=== PATIENT | male | born 1955 | race Caucasian/White ===

== ENCOUNTER 2018-05-16 07:24 | Emergency (ER) | END 2018-05-16 08:56 | disposition home or self-care (01) ==

== ENCOUNTER 2018-06-08 05:38 | Emergency (ER) | END 2018-06-08 09:54 | disposition home or self-care (01) ==

== ENCOUNTER 2018-06-23 23:14 | Emergency (ER) | END 2018-06-24 02:34 | disposition home or self-care (01) ==

== ENCOUNTER 2018-06-24 10:30 | Emergency (ER) | END 2018-06-24 14:12 | disposition home or self-care (01) ==

== ENCOUNTER 2018-07-08 21:16 | Emergency (ER) | END 2018-07-09 02:00 | disposition home or self-care (01) ==

== ENCOUNTER 2018-08-03 00:04 | Emergency (ER) | END 2018-08-03 03:40 | disposition home or self-care (01) ==

== ENCOUNTER 2018-09-25 12:57 | Emergency (ER) | payer MEDICARE, OTHER ==
[~2018-09-25] VITALS: Ht 167.6 cm; Wt 73.7 kg
[~2018-09-25 12:57] MED LIST: CITA20TA11 PO; CLIN300C10 PO; FINA5TAB4 PO; PANT20TA2 PO; TAMS-14 PO
[2018-09-25 12:59] VITALS: BP 156/91; PULSE 86; RESP 20; Ht 167.6 cm; Wt 73.7 kg
--- NOTE | 2018-09-25 14:59 | ERD ---
ER Documentation Chief Complaint Chief Complaint Complains of urine problems x 2 days HPI 63-year-old male with history of indwelling Burnham catheter, presents to the emergency department, complaining of dysuria and foul urine smell for 2 days. The patient is requesting a change of the Burnham catheter. He denies fevers, no chills, no nausea or vomiting. ROS All systems reviewed and are negative except as per history of present illness. Medications Home Meds Active Scripts Clindamycin Hcl* (Clindamycin Hcl*) 300 Mg Capsule, 300 MG PO TID for 10 Days, CAP Prov:CORNELIA RAMOSPritesh 08/03/18 Reported Medications Finasteride* (Finasteride*) 5 Mg Tablet, 5 MG PO DAILY, TAB 06/24/18 Tamsulosin Hcl* (Flomax*) 0.4 Mg Cap.er.24h, 0.4 MG PO BID, CAP 06/08/18 Citalopram Hydrobromide* (Celexa*) 20 Mg Tablet, 20 MG PO DAILY, #30 TAB 06/08/18 Pantoprazole* (Protonix*) 20 Mg Tablet.dr, 20 MG PO AC BREAKFAST, TAB 06/08/18 Allergies Allergies: Coded Allergies: erythromycin base (Unverified Allergy, Unknown, 09/25/18) PMhx/Soc History of Surgery: Yes (LT WRIST ) Anesthesia Reaction: No Hx Neurological Disorder: No Hx Respiratory Disorders: No Hx Cardiac Disorders: No Hx Psychiatric Problems: Yes (DEPRESSION) Hx Miscellaneous Medical Probl: Yes (GERD , ENLARGED PROSTATE ) Hx Alcohol Use: Yes Hx Substance Use: Yes (WEED) Hx Tobacco Use: Yes (CIGARS OCCASIONAL) Smoking Status: Current every day smoker Physical Exam Vitals Vital Signs Date Temp Pulse Resp B/P (MAP) Pulse Ox O2 O2 Flow FiO2 Time Delivery Rate 09/25/18 97.9 86 20 156/91 97 12:59 (112) Physical Exam Const: No acute distress Head: Atraumatic Eyes: Normal Conjunctiva ENT: Normal External Ears, Nose and Mouth. Neck: Full range of motion. No meningismus. Resp: Clear to auscultation bilaterally Cardio: Regular rate and rhythm, no murmurs Abd: Soft, non tender, non distended. Normal bowel sounds Skin: No petechiae or rashes Back: No midline or flank tenderness Ext: No cyanosis, or edema Neur: Awake and alert Psych: Normal Mood and Affect Results 24 hrs Laboratory Tests Test 09/25/18 16:00 Urine Color RED Urine Clarity CLOUDY Urine pH 6.0 Urine Specific [place] 1.021 Urine Ketones 1+ mg/dL Urine Nitrite NEGATIVE mg/dL Urine Bilirubin NEGATIVE mg/dL Urine Urobilinogen NEGATIVE mg/dL Urine Leukocyte Esterase NEGATIVE Jeannette/ul Urine Microscopic RBC > 182 /HPF Urine Microscopic WBC 174 /HPF Urine Bacteria FEW /HPF Urine Mucus FEW /HPF Urine Hemoglobin 3+ mg/dL Urine Glucose NEGATIVE mg/dL Urine Total Protein 2+ mg/dl Current Medications Medications Dose Sig/Fatmata Start Time Status Last (Trade) Ordered Route PRN Stop Time Admin Dose Reason Admin Lidocaine 20 ml ONCE ONCE 09/25/18 DC 09/25/18 (Lidocaine MM 15:30 09/25/18 15:30 2% Urojet) 15:31 Procedures/MDM Vital signs stable. Differential diagnosis considered include acute urinary retention, side effects of medication, BPH, neurogenic bladder, UTI, kidney stone. During the ED course the patient remained stable, no new complaints. The patient received treatment with Burnham catheter placement presenting overall improvement of the symptoms. Results and clinical impression discussed with the patient who agrees with management. The patient is stable to be discharged home. some side effects of prescribed medications (headache, rash, nausea, vomiting, diarrhea, drowsiness, habituation, bleeding, hypertension, interactions with other medications) were reviewed. Follow up with the primary care provider in the next 48h has been recommended. If symptoms persist, worsen or new symptoms develop, then patient should return to the ED immediately. Instructions explained and given directly by me to the patient with acknowledgment and demonstrated understanding. Disclaimer: Inadvertent spelling and grammatical errors are likely due to EHR/dictation software use and do not reflect on the overall quality of patient care. Also, please note that the electronic time recorded on this note does not necessarily reflect the actual time of the patient encounter. Departure Diagnosis: Primary Impression: UTI (urinary tract infection) Additional Impression: Indwelling Burnham catheter present Condition: Stable Comments Thank you very much for allowing us to participate in your care. Your health and safety is our top priority at [facility]. Call your primary care doctor TOMORROW for an appointment during the next 2-4 days and bring all the information and medications prescribed. Have prescriptions filled and follow precisely the directions on the label. If the symptoms get worse and your provider is unavailable, return to the Emergency Department immediately. FRANCISCO BEAR MD Sep 25, 2018 14:59
[2018-09-25] MEDS ORDERED: LIDOCAINE 2% 20 ML UROJET SYRINGE MM ONE (15:30)
[2018-09-25] MEDS ORDERED: CEPH-443 PO (16:57)
== END 2018-09-25 17:44 | disposition home or self-care (01) ==
LOC: FTE 12:57
DX: N39.0 Urinary tract infection, site not specified (principal); F17.210 Nicotine dependence, cigarettes, uncomplicated; Z96.0 Presence of urogenital implants
CPT/HCPCS: 81001

== ENCOUNTER 2018-12-02 10:27 | Emergency (ER) | payer MEDICARE, OTHER ==
[~2018-12-02] VITALS: Wt 72.5 kg
[~2018-12-02 10:27] MED LIST changes: -CLIN300C10 PO; +LEVO500T48 PO
[2018-12-02] MEDS ORDERED: CIPR500T4 PO (12:10)
[2018-12-02] MEDS ORDERED: FLUCONAZOLE 150 MG TAB PO ONE (12:30)
--- NOTE | 2018-12-02 14:24 | ERD ---
ER Documentation Chief Complaint Chief Complaint OBSTRUCTION OF OMALLEY CATH, PAIN REPORTED HPI Patient is a 63-year-old male with a history of BPH with Omalley catheter placement, GERD, depression, who presents to the ER for concerns of Omalley catheter blockage. Patient states this morning he woke up with severe pain and noticed that there was no urine draining in his Omalley catheter bag. Patient states he had immediate relief after he passed 2 small blood clots while having his vitals assessed at triage. Patient states that the urine bag was filled with urine after. Since that time patient has no pain. Patient denies any fevers, chills, nausea, vomiting. Patient states he is scheduled to have procedure in December with his urologist at [facility]. Patient states that his Omalley catheter was changed 2 weeks ago at his urologist's office. Patient states since that time he has had intermittent leakage of the catheter and blockages. Patient is requesting calorie changes he feels that it was not put in correctly.. Patient denied homocidal ideations or suicidal ideations. ROS All systems reviewed and are negative except as per history of present illness. Medications Home Meds Active Scripts Ciprofloxacin Hcl* (Ciprofloxacin Hcl*) 500 Mg Tablet, 500 MG PO BID for 10 Days, TAB Prov:JAMES HAINES PA-C 12/02/18 Levofloxacin* (Levaquin*) 500 Mg Tablet, 500 MG PO DAILY for 7 Days, TAB Prov:LINDA MADSEN MD 10/07/18 Reported Medications Finasteride* (Finasteride*) 5 Mg Tablet, 5 MG PO DAILY, TAB 06/24/18 Tamsulosin Hcl* (Flomax*) 0.4 Mg Cap.er.24h, 0.4 MG PO BID, CAP 06/08/18 Citalopram Hydrobromide* (Celexa*) 20 Mg Tablet, 20 MG PO DAILY, #30 TAB 06/08/18 Pantoprazole* (Protonix*) 20 Mg Tablet.dr, 20 MG PO AC BREAKFAST, TAB 06/08/18 Allergies Allergies: Coded Allergies: erythromycin base (Unverified Allergy, Unknown, 10/07/18) PMhx/Soc History of Surgery: No Anesthesia Reaction: No Hx Neurological Disorder: No Hx Respiratory Disorders: No Hx Cardiac Disorders: No Hx Psychiatric Problems: No Hx Miscellaneous Medical Probl: No Hx Alcohol Use: No Hx Substance Use: No Hx Tobacco Use: No Smoking Status: Never smoker FmHx Family History: No diabetes Physical Exam Vitals Vital Signs Date Temp Pulse Resp B/P (MAP) Pulse Ox O2 O2 Flow FiO2 Time Delivery Rate 12/02/18 98.6 99 17 166/92 99 10:29 (116) Physical Exam GENERAL: Well-developed, well-nourished male. Appears in no acute distress. HEAD: Normocephalic, atraumatic. EYES: Pupils are equally reactive bilaterally. EOMs grossly intact. No conjunctival erythema. NECK: Supple. No meningismus. Normal range of motion of the neck. LUNG: Clear to auscultation bilaterally. No rhonchi, wheezing, rales or coarse breath sounds. HEART: Regular rate and rhythm. No murmurs, rubs or gallops. ABDOMEN: Soft, nontender, and nondistended. Positive bowel sounds in all four quadrants. No rebound tenderness, no guarding. (-) McBurney's point tenderness. No CVA tenderness. EXTREMITIES: Equal pulses bilaterally. No peripheral clubbing, cyanosis or edema. No unilateral leg swelling. NEUROLOGIC: Alert and oriented. Moving all four extremities without any difficulty. Normal speech. Steady gait. SKIN: Normal color. Warm and dry. No rashes or lesions. Results 24 hrs Laboratory Tests Test 12/02/18 11:50 Urine Color YELLOW Urine Clarity SLIGHTLY CLOUDY Urine pH 7.0 Urine Specific [place] 1.009 Urine Ketones NEGATIVE mg/dL Urine Nitrite NEGATIVE mg/dL Urine Bilirubin NEGATIVE mg/dL Urine Urobilinogen NEGATIVE mg/dL Urine Leukocyte Esterase 1+ Jeannette/ul Urine Microscopic RBC > 182 /HPF Urine Microscopic WBC 11 /HPF Urine Calcium Oxalate Crystals MANY /HPF Urine Bacteria FEW /HPF Urine Yeast (Budding) FEW /HPF Urine Hemoglobin 3+ mg/dL Urine Glucose NEGATIVE mg/dL Urine Total Protein NEGATIVE mg/dl Current Medications Medications Dose Sig/Fatmata Start Time Status Last (Trade) Ordered Route PRN Stop Time Admin Dose Reason Admin Fluconazole 150 mg ONCE ONCE 12/02/18 DC 12/02/18 (Diflucan) PO 12:30 12:22 12/02/18 12:30 Procedures/MDM MEDICAL DECISION MAKING: This is a this is a 63-year-old male with a history of BPH with Omalley catheter placement, GERD, depression who presents the ER for concerns of Omalley catheter problems. Patient states prior to arrival his catheter was blocked however in triage she passed some blood clots and catheter is now passing urine. Patient denies any pain at this time. Vital signs were reviewed. Patient was afebrile. Omalley catheter will be changed as patient states he is been having problems with his current catheter. clinical staff anesthesiologist assisted. Urine was sent to the lab and was noted to have 1+ leukocyte esterase as well as yeast. Urine was sent for culture. Findings were discussed with supervising physician Dr. Garcia, who agreed it was appropriate to treat the patient at this time with Diflucan and ciprofloxacin at this time. Patient was given dose of Diflucan here. Patient advised to follow-up with urologist as scheduled. At this time, the patient's presentation is most consistent with Omalley catheter change as well as UTI. Low suspicion for urosepsis, pyelonephritis, nephrolithiasis, appendicitis, diverticulitis, constipation, urethritis, prostatitis, epididymitis, testicular torsion. Patient was nontoxic, [id number] prior to discharge. PRESCRIPTIONS: Ciprofloxacin DISCHARGE: At this time, patient is stable for discharge and outpatient management. I have instructed the patient to follow-up with his/her primary care physician in 1-2 days. Patient should repeat UA in 2 weeks to check for resolution of urinary tract infection. If symptoms persist, patient may need to see a specialist for further examinations and testing. I have instructed the patient to promptly return to the ER at any time for any new or worsening symptoms including increased pain, fever, nausea, vomiting, urinary changes or weakness. The patient and/or family expressed understanding of and agreement with this plan. All questions were answered. Home care instructions were provided. Disclaimer: Inadvertent spelling and grammatical errors are likely due to EHR/dictation software use and do not reflect on the overall quality of patient care. Also, please note that the electronic time recorded on this note does not necessarily reflect the actual time of the patient encounter. Departure Diagnosis: Primary Impression: Catheter (urine) change required Additional Impression: UTI (urinary tract infection) Urinary tract infection type: site unspecified Hematuria presence: with hematuria Qualified Codes: N39.0 - Urinary tract infection, site not specified; R31.9 - Hematuria, unspecified Condition: Fair Patient Instructions: Understanding Urinary Tract Infections (UTIs), Omalley Catheter, Care Referrals: [facility] (PCP) Additional Instructions: Follow up with your urologist as scheduled. Call your primary care doctor TOMORROW for an appointment during the next 1-2 days.See the doctor sooner or return here if your condition worsens before your appointment time. JAMES HAINES PA-C Dec 02, 2018 14:24
== END 2018-12-02 12:25 | disposition home or self-care (01) ==
LOC: FTE 10:27
DX: N39.0 Urinary tract infection, site not specified (principal); Z46.6 Encounter for fitting and adjustment of urinary device
CPT/HCPCS: 81001; 87086

== ENCOUNTER 2018-12-24 03:50 | Emergency (ER) | payer MEDICARE, OTHER ==
[~2018-12-24] VITALS: Ht 167.6 cm; Wt 75.0 kg
[~2018-12-24 03:50] MED LIST changes: +CIPR500T4 PO
--- NOTE | 2018-12-24 03:54 | ERD ---
ER Documentation Chief Complaint Chief Complaint clotted Burnham HPI The patient is a 63-year-old male, presenting to the ER because of clotted Burnham catheter that was replaced a few weeks ago. He is awaiting for prostate surgery at [facility]. He denies fever, chills, neck pain, chest pain, abdominal pain, vomiting. Past medical history: BPH, GERD, depression ROS All systems reviewed and are negative except as per history of present illness. Medications Home Meds Active Scripts Ciprofloxacin Hcl* (Ciprofloxacin Hcl*) 500 Mg Tablet, 500 MG PO BID for 10 Days, TAB Prov:JAMES HAINES PA-C 12/02/18 Levofloxacin* (Levaquin*) 500 Mg Tablet, 500 MG PO DAILY for 7 Days, TAB Prov:LINDA MADSEN MD 10/07/18 Reported Medications Finasteride* (Finasteride*) 5 Mg Tablet, 5 MG PO DAILY, TAB 06/24/18 Tamsulosin Hcl* (Flomax*) 0.4 Mg Cap.er.24h, 0.4 MG PO BID, CAP 06/08/18 Citalopram Hydrobromide* (Celexa*) 20 Mg Tablet, 20 MG PO DAILY, #30 TAB 06/08/18 Pantoprazole* (Protonix*) 20 Mg Tablet.dr, 20 MG PO AC BREAKFAST, TAB 06/08/18 Allergies Allergies: Coded Allergies: erythromycin base (Unverified Allergy, Unknown, 10/07/18) PMhx/Soc History of Surgery: No Anesthesia Reaction: No Hx Neurological Disorder: No Hx Respiratory Disorders: No Hx Cardiac Disorders: No Hx Psychiatric Problems: No Hx Miscellaneous Medical Probl: No Hx Alcohol Use: No Hx Substance Use: No Hx Tobacco Use: No Physical Exam Vitals Vital Signs Date Temp Pulse Resp B/P (MAP) Pulse Ox O2 O2 Flow FiO2 Time Delivery Rate 12/24/18 73 20 147/89 100 Room Air 05:41 (108) 12/24/18 70 20 158/96 100 Nasal 2.0 04:23 (116) Cannula 12/24/18 95 24 195/104 100 04:11 (134) Physical Exam Const: No acute distress. Head: Atraumatic. Eyes: Normal Conjunctiva. ENT: Normal External Ears, Nose and Mouth. Neck: Full range of motion. No meningismus. Resp: Clear to auscultation bilaterally. Cardio: Regular rate and rhythm. Abd: Soft, distended urinary bladder, normal bowel sounds Skin: No petechiae or rashes. Back: No midline or flank tenderness. Ext: No cyanosis, or edema. Neur: Awake and alert. No focal deficit Psych: Normal Mood and Affect. Results 24 hrs Laboratory Tests Test 12/24/18 04:25 Bedside Urine pH (LAB) 6.0 Bedside Urine Protein (LAB) 2+ Bedside Urine Glucose (UA) Negative Bedside Urine Ketones (LAB) Trace Bedside Urine Blood 3+ Bedside Urine Nitrite (LAB) Negative Bedside Urine Leukocyte Esterase (L Trace Current Medications Medications Dose Sig/Fatmata Start Time Status Last (Trade) Ordered Route PRN Stop Time Admin Dose Reason Admin Lidocaine 20 ml ONCE ONCE 12/24/18 DC 12/24/18 (Lidocaine MM 04:00 12/24/18 04:03 2% Urojet) 04:01 Procedures/MDM MEDICAL MAKING DECISION: The patient is a 63-year-old male, presenting with clotted Burnham catheter, it was replaced.drain about 1 L of urine with spontaneous relief The differential diagnoses considered include but are not limited to BPH, urethral stricture, cystitis Departure Diagnosis: Primary Impression: Obstructed Burnham catheter Condition: Good Comments I discussed the findings with the patient. I advised the patient to follow-up with his urologist in about 2-3 days, sooner if needed and return if any concern. Disclaimer: Inadvertent spelling and grammatical errors are likely due to EHR/dictation software use and do not reflect on the overall quality of patient care. Also, please note that the electronic time recorded on this note does not necessarily reflect the actual time of the patient encounter. YOLANDA PRIEST MD Dec 24, 2018 03:54
[2018-12-24] MEDS ORDERED: LIDOCAINE 2% 20 ML UROJET SYRINGE MM ONE (04:00)
[2018-12-24 04:11] VITALS: Ht 167.6 cm; Wt 75.0 kg
[2018-12-24 05:41] VITALS: BP 147/89; PULSE 73; RESP 20
== END 2018-12-24 05:51 | disposition home or self-care (01) ==
LOC: E/R 03:50
DX: T83.098A Other mechanical complication of other urinary catheter, initial encounter (principal); R33.9 Retention of urine, unspecified; Y73.3 Surgical instruments, materials and gastroenterology and urology devices (including sutures) associated with adverse incidents
CPT/HCPCS: 81003; 87086

== ENCOUNTER 2018-12-30 22:17 | Emergency (ER) | payer MEDICARE, OTHER ==
[~2018-12-30] VITALS: Ht 175.3 cm; Wt 73.8 kg
[2018-12-30 22:36] VITALS: Ht 175.3 cm; Wt 73.8 kg
[2018-12-31] MEDS ORDERED: NITR-58 PO (04:42)
[2018-12-31] MEDS ORDERED: LIDOCAINE 2% JEL.PF.APP 5 ML UROJET SYRINGE MM ONE (05:30)
[2018-12-31 06:06] VITALS: BP 128/78; PULSE 78; RESP 16
--- NOTE | 2018-12-31 21:46 | ERD ---
ER Documentation Chief Complaint Chief Complaint STATES CLOGGED URINE CATH X2 HRS, STATES BLOOD IN URINE HPI History of Present Illness: 63-year-old male with history of BPH coming in today with complaint of clogged urine catheter for the past 2 hours. Patient reports having a Burnham catheter since June of last year due to his BPH. Associated symptoms includes mild abdominal pain and pink tinged urine. Patient denies any other associated symptoms. Patient denies flank pain or abdominal pain. At home pharmacological/nonpharmacological treatment for symptoms: DENIES Denies social concerns; Denies recent foreign travel ROS All systems reviewed and are negative except as per history of present illness. Medications Home Meds Active Scripts Nitrofurantoin Monohyd Macrocr* (Macrobid*) 100 Mg Capsr, 100 MG PO BID for bacteria in urine for 5 Days, CAP Prov:JENNIFER SOLORIO NP 12/31/18 Ciprofloxacin Hcl* (Ciprofloxacin Hcl*) 500 Mg Tablet, 500 MG PO BID for 10 Days, TAB Prov:JAMES HAINES PA-C 12/02/18 Levofloxacin* (Levaquin*) 500 Mg Tablet, 500 MG PO DAILY for 7 Days, TAB Prov:LINDA MADSEN MD 10/07/18 Reported Medications Finasteride* (Finasteride*) 5 Mg Tablet, 5 MG PO DAILY, TAB 06/24/18 Tamsulosin Hcl* (Flomax*) 0.4 Mg Cap.er.24h, 0.4 MG PO BID, CAP 06/08/18 Citalopram Hydrobromide* (Celexa*) 20 Mg Tablet, 20 MG PO DAILY, #30 TAB 06/08/18 Pantoprazole* (Protonix*) 20 Mg Tablet.dr, 20 MG PO AC BREAKFAST, TAB 06/08/18 Allergies Allergies: Coded Allergies: erythromycin base (Unverified Allergy, Unknown, 10/07/18) PMhx/Soc History of Surgery: No Anesthesia Reaction: No Hx Neurological Disorder: No Hx Respiratory Disorders: No Hx Cardiac Disorders: No Hx Psychiatric Problems: No Hx Alcohol Use: No Hx Substance Use: No Hx Tobacco Use: No Smoking Status: Never smoker FmHx Family History: No diabetes Physical Exam Vitals Vital Signs Date Temp Pulse Resp B/P (MAP) Pulse Ox O2 O2 Flow FiO2 Time Delivery Rate 12/31/18 98.6 78 16 128/78 100 Room Air 06:06 (95) 12/30/18 98.0 70 18 144/89 100 22:36 (107) Physical Exam Const: No acute distress Head: Atraumatic Eyes: Normal Conjunctiva ENT: Normal External Ears, Nose and Mouth. Neck: Full range of motion. No meningismus. Resp: Clear to auscultation bilaterally Cardio: Regular rate and rhythm, no murmurs Abd: Soft, positive tenderness to suprapubic, non distended. Normal bowel sounds. Skin: No petechiae or rashes Back: No midline or flank tenderness Ext: No cyanosis, or edema Neur: Awake and alert Psych: Normal Mood and Affect : Burnham catheter in place to penis. Results 24 hrs Laboratory Tests Test 12/31/18 02:58 Urine Color YELLOW Urine Clarity SLIGHTLY CLOUDY Urine pH 6.0 Urine Specific [place] 1.006 Urine Ketones NEGATIVE mg/dL Urine Nitrite NEGATIVE mg/dL Urine Bilirubin NEGATIVE mg/dL Urine Urobilinogen NEGATIVE mg/dL Urine Leukocyte Esterase NEGATIVE Jeannette/ul Urine Microscopic RBC 26 /HPF Urine Microscopic WBC 2 /HPF Urine Bacteria FEW /HPF Urine Hemoglobin 3+ mg/dL Urine Glucose NEGATIVE mg/dL Urine Total Protein NEGATIVE mg/dl Current Medications Medications Dose Sig/Fatmata Start Time Status Last (Trade) Ordered Route PRN Stop Time Admin Dose Reason Admin Lidocaine 5 ml ONCE ONCE 12/31/18 DC HCl MM 05:30 (Lidocaine 12/31/18 05:31 Urojet) Procedures/MDM ED course includes a thorough examination and history. Medications: --- Imaging: Bladder scan/ultrasound Labs: Urinalysis ED course includes removal of old Burnham catheter insertion of a new Burnham catheter; bladder irrigation with normal saline; bladder scan to measure amount of urine in bladder. Low suspicion for life-threatening medical emergency. Low suspicion for acute abdominal gastrointestinal or genitourinary emergency that requires hospitalization or immediate surgical intervention. patient presenting with constellation of symptoms likely representing combination of catheter/bacteria in urine as characterized by history, physical exam findings, lab findings. Urinalysis showing few bacteria, RBCs, hemoglobin. Patient reassessment: Nurse's irrigated Burnham and patient is producing urine during ER visit. After removal of Burnham catheter, the nurse noted that a blood clot was noted to the tip of catheter in was likely the source of the Burnham catheter not draining properly. Reinsertion of a larger Burnham. Burnham appears t o be draining properly at time of discharge. No gross hematuria noted. No respiratory distress, otherwise relatively well appearing and nontoxic. Patient educated on diagnoses, prescriptions, follow-up care, return precautions. Strict return precautions given for worsening condition; questions answered discharge. Disposition for discharge with followup in 2 days with PCP/clinic. Departure Diagnosis: Primary Impression: Hematuria Hematuria type: unspecified type Qualified Codes: R31.9 - Hematuria, unspecified Additional Impressions: Complication of catheter Encounter type: initial encounter Qualified Codes: T85.9XXA - Unspecified complication of internal prosthetic device, implant and graft, initial encounter Bacteria in urine Condition: Stable Patient Instructions: Catheter-Associated Urinary Tract Infections, Emptying and Cleaning Your Urinary Catheter Bag Referrals: [facility] YOU HAVE RECEIVED A MEDICAL SCREENING EXAM AND THE RESULTS INDICATE THAT YOU DO NOT HAVE A CONDITION THAT REQUIRES URGENT TREATMENT IN THE EMERGENCY DEPARTMENT. FURTHER EVALUATION AND TREATMENT OF YOUR CONDITION CAN WAIT UNTIL YOU ARE SEEN IN YOUR DOCTORS OFFICE WITHIN THE NEXT 1-2 DAYS. IT IS YOUR RESPONSIBILITY TO MAKE AN APPOINTMENT FOR FOLOW-UP CARE. IF YOU HAVE A PRIMARY DOCTOR --you should call your primary doctor and schedule an appointment IF YOU DO NOT HAVE A PRIMARY DOCTOR YOU CAN CALL OUR PHYSICIAN REFERRAL HOTLINE AT IF YOU CAN NOT AFFORD TO SEE A PHYSICIAN YOU CAN CHOSE FROM THE FOLLOWING [facility] [address] [facility]. [facility] [address] [facility]. [facility] [address] [facility] [facility] [address] [facility] [facility]. [facility] [address] [facility]. [facility]. [address] [facility]. [facility] YOU HAVE RECEIVED A MEDICAL SCREENING EXAM AND THE RESULTS INDICATE THAT YOU DO NOT HAVE A CONDITION THAT REQUIRES URGENT TREATMENT IN THE EMERGENCY DEPARTMENT. FURTHER EVALUATION AND TREATMENT OF YOUR CONDITION CAN WAIT UNTIL YOU ARE SEEN IN YOUR DOCTORS OFFICE WITHIN THE NEXT 1-2 DAYS. IT IS YOUR RESPONSIBILITY TO MAKE AN APPOINTMENT FOR FOLOW-UP CARE. IF YOU HAVE A PRIMARY DOCTOR --you should call your primary doctor and schedule and appointment IF YOU DO NOT HAVE A PRIMARY DOCTOR YOU CAN CALL OUR PHYSICIAN REFERRAL HOTLINE AT . IF YOU CAN NOT AFFORD TO SEE A PHYSICIAN YOU CAN CHOSE FROM THE FOLLOWING [facility] INSTITUTIONS: [facility] [address] [place] [address] [facility] [address] [place] [address] [facility] [address] [place] [address] Additional Instructions: Thank you very much for allowing us to participate in your care. Your health and safety is our top priority at [facility]. It is important to read all discharge instructions and education provided in your discharge packet. Call your primary care doctor TOMORROW for an appointment during the next 2-4 days and bring all the information and medications prescribed. It is very important to follow-up with your primary care doctor and/or urologist for reevaluation of catheter. Have prescriptions filled and follow precisely the directions on the label. -Macrobid as an antibiotic for the bacteria in your urine. Take this medication twice a day for the next 5 days. If the symptoms get worse and your provider is unavailable, return to the [facility] immediately. JENNIFER SOLORIO NP Dec 31, 2018 21:46
== END 2018-12-31 06:07 | disposition home or self-care (01) ==
LOC: FTE 22:17
DX: T85.9XXA Unspecified complication of internal prosthetic device, implant and graft, initial encounter (principal); N39.0 Urinary tract infection, site not specified; Y73.2 Prosthetic and other implants, materials and accessory gastroenterology and urology devices associated with adverse incidents
CPT/HCPCS: 76856; 81001

== ENCOUNTER 2019-01-21 15:20 | Emergency (ER) | payer MEDICARE, OTHER ==
[~2019-01-21] VITALS: Ht 175.3 cm; Wt 70.6 kg
[~2019-01-21 15:20] MED LIST changes: +NITR-58 PO
[2019-01-21 15:24] VITALS: Ht 175.3 cm; Wt 70.6 kg
[2019-01-21] MEDS ORDERED: CIPR500T4 PO (16:51)
--- NOTE | 2019-01-21 18:37 | ERD ---
ER Documentation Chief Complaint Chief Complaint needs willard cath to be changed, pain at insertion site, discharge from cath HPI Patient is a 63-year-old male with prostate issues and a chronic Willard catheter who presents saying that his catheter is "infected". He said that it started 2 days ago. He said there is white discharge from around the catheter and that it hall and itches. He has no fevers. He does not currently have a primary doctor or a urologist. Upon review of old medical records the patient has multiple visits to the ER for various complaints. ROS All systems reviewed and are negative except as per history of present illness. Medications Home Meds Active Scripts Ciprofloxacin Hcl* (Ciprofloxacin Hcl*) 500 Mg Tablet, 500 MG PO BID for 7 Days, TAB Prov:CARLOS CRUZ MD 01/21/19 Nitrofurantoin Monohyd Macrocr* (Macrobid*) 100 Mg Capsr, 100 MG PO BID for bacteria in urine for 5 Days, CAP Prov:JENNIFER SOLORIO NP 12/31/18 Ciprofloxacin Hcl* (Ciprofloxacin Hcl*) 500 Mg Tablet, 500 MG PO BID for 10 Days, TAB Prov:JAMES HAINES PA-C 12/02/18 Levofloxacin* (Levaquin*) 500 Mg Tablet, 500 MG PO DAILY for 7 Days, TAB Prov:LINDA MADSEN MD 10/07/18 Reported Medications Finasteride* (Finasteride*) 5 Mg Tablet, 5 MG PO DAILY, TAB 06/24/18 Tamsulosin Hcl* (Flomax*) 0.4 Mg Cap.er.24h, 0.4 MG PO BID, CAP 06/08/18 Citalopram Hydrobromide* (Celexa*) 20 Mg Tablet, 20 MG PO DAILY, #30 TAB 06/08/18 Pantoprazole* (Protonix*) 20 Mg Tablet.dr, 20 MG PO AC BREAKFAST, TAB 06/08/18 Allergies Allergies: Coded Allergies: erythromycin base (Unverified Allergy, Unknown, 10/07/18) PMhx/Soc Prostate issues with chronic indwelling Willard History of Surgery: No Anesthesia Reaction: No Hx Neurological Disorder: No Hx Respiratory Disorders: No Hx Cardiac Disorders: No Hx Psychiatric Problems: No Hx Alcohol Use: No Hx Substance Use: No Hx Tobacco Use: No FmHx Family History: diabetes Physical Exam Vitals Vital Signs Date Temp Pulse Resp B/P (MAP) Pulse Ox O2 O2 Flow FiO2 Time Delivery Rate 01/21/19 97.9 72 18 172/98 98 15:24 (122) Physical Exam Const: No acute distress Head: Atraumatic Eyes: Normal Conjunctiva ENT: Normal External Ears, Nose and Mouth. Neck: Full range of motion. No meningismus. Resp: Clear to auscultation bilaterally Cardio: Regular rate and rhythm, no murmurs Abd: Soft, non tender, non distended. Normal bowel sounds Skin: No petechiae or rashes Back: No midline or flank tenderness Ext: No cyanosis, or edema Neur: Awake and alert : Indwelling Willard catheter with white discharge from around the Willard catheter Results 24 hrs Laboratory Tests Test 01/21/19 17:00 Bedside Urine pH (LAB) 6.0 Bedside Urine Protein (LAB) 2+ Bedside Urine Glucose (UA) Negative Bedside Urine Ketones (LAB) Negative Bedside Urine Blood 3+ Bedside Urine Nitrite (LAB) Positive Bedside Urine Leukocyte Esterase (L 1+ Procedures/MDM Urine dip is positive for infection. Patient is a 63-year-old male presents with acute cystitis with Willard catheter. The Willard catheter was removed and replaced with a new one. The patient will be given Cipro for 1 week. I doubt sepsis or other serious bacterial infection. The patient will be given information for Dr. Grove from urology as he should have a urologist that he can follow-up with. He can return for any worsening symptoms Departure Diagnosis: Primary Impression: UTI (urinary tract infection) Urinary tract infection type: acute cystitis Hematuria presence: without hematuria Qualified Codes: N30.00 - Acute cystitis without hematuria Additional Impression: Complication of catheter Encounter type: initial encounter Qualified Codes: T85.9XXA - Unspecified complication of internal prosthetic device, implant and graft, initial encounter Condition: Fair Patient Instructions: Catheter-Associated Urinary Tract Infections Referrals: [facility] (PCP) MCKENNA GROVE MD Additional Instructions: SPECIALIST: YOU HAVE A MEDICAL CONDITION WHICH REQUIRES YOU TO SEE A SPECIALIST WITHIN THE NEXT 1-2 DAYS. PLEASE FOLLOW UP WITH YOUR PRIMARY PHYSICIAN FOR REFFERAL.IF YOU DO NOT HAVE A PRIMARY CARE PHYSICIAN AND/OR YOU CAN NOT AFFORD TO SEE A PHYSICIAN THE FOLLOWING RESOURCES HAVE BEEN SUPPLIED TO YOU. IT IS YOUR RESPONSIBILITY TO BE SEEN BY THE SPECIALIST CARLOS CRUZ MD January 21, 2019 18:37
== END 2019-01-21 17:23 | disposition home or self-care (01) ==
LOC: FTE 15:20
DX: N30.00 Acute cystitis without hematuria (principal); Y73.2 Prosthetic and other implants, materials and accessory gastroenterology and urology devices associated with adverse incidents
CPT/HCPCS: 81003

== ENCOUNTER 2019-03-28 13:31 | Emergency (ER) | payer MEDICARE, OTHER ==
[~2019-03-28] VITALS: Ht 157.5 cm; Wt 78.0 kg
[2019-03-28 13:33] VITALS: Ht 157.5 cm; Wt 78.0 kg
[2019-03-28] MEDS ORDERED: LIDOCAINE 2% 20 ML UROJET SYRINGE MM ONE ×2 (14:30)
[2019-03-28] MEDS ORDERED: TAMS-14 PO (14:42)
[2019-03-28] MEDS ORDERED: CEPH-443 PO (14:42)
--- NOTE | 2019-03-28 14:50 | ERD ---
ER Documentation Chief Complaint Chief Complaint HAS F/C IN X 2 WEEKS , APPEARS BEEN CLOGGED HAS PAIN HPI 63-year-old male presenting with pain around his catheter and clogging. Patient has an appointment in 2 days with his urologist and is waiting for a TURP procedure. Patient denies any fevers. Denies hematuria. Denies back pain. Denies abdominal pain. Patient has distention because of clogged catheter. Last catheter was placed 4 weeks ago. Medical history is hypertension and enlarged prostate. Social history denies ROS All systems reviewed and are negative except as per history of present illness. Medications Home Meds Active Scripts Tamsulosin Hcl* (Flomax*) 0.4 Mg Cap.er.24h, 0.4 MG PO BID, #30 CAP Prov:BRAD JUDGE PA-C 03/28/19 Cephalexin* (Keflex*) 500 Mg Capsule, 500 MG PO QID for 7 Days, CAP Prov:BRAD JUDGE PA-C 03/28/19 Ciprofloxacin Hcl* (Ciprofloxacin Hcl*) 500 Mg Tablet, 500 MG PO BID for 7 Days, TAB Prov:CARLOS CRUZ MD 01/21/19 Nitrofurantoin Monohyd Macrocr* (Macrobid*) 100 Mg Capsr, 100 MG PO BID for bacteria in urine for 5 Days, CAP Prov:JENNIFER SOLORIO NP 12/31/18 Ciprofloxacin Hcl* (Ciprofloxacin Hcl*) 500 Mg Tablet, 500 MG PO BID for 10 Days, TAB Prov:JAMES HAINES PA-C 12/02/18 Levofloxacin* (Levaquin*) 500 Mg Tablet, 500 MG PO DAILY for 7 Days, TAB Prov:LINDA MADSEN MD 10/07/18 Reported Medications Finasteride* (Finasteride*) 5 Mg Tablet, 5 MG PO DAILY, TAB 06/24/18 Tamsulosin Hcl* (Flomax*) 0.4 Mg Cap.er.24h, 0.4 MG PO BID, CAP 06/08/18 Citalopram Hydrobromide* (Celexa*) 20 Mg Tablet, 20 MG PO DAILY, #30 TAB 06/08/18 Pantoprazole* (Protonix*) 20 Mg Tablet.dr, 20 MG PO AC BREAKFAST, TAB 06/08/18 Allergies Allergies: Coded Allergies: erythromycin base (Unverified Allergy, Unknown, 10/07/18) PMhx/Soc History of Surgery: No Anesthesia Reaction: No Hx Neurological Disorder: No Hx Respiratory Disorders: No Hx Cardiac Disorders: No Hx Psychiatric Problems: No Hx Alcohol Use: No Hx Substance Use: No Hx Tobacco Use: No Smoking Status: Never smoker FmHx Family History: No diabetes, No coronary disease, No other Physical Exam Vitals Vital Signs Date Temp Pulse Resp B/P (MAP) Pulse Ox O2 O2 Flow FiO2 Time Delivery Rate 03/28/19 97.6 71 18 134/91 99 Room Air 15:17 (105) 03/28/19 98.1 78 18 140/78 99 13:33 (98) Physical Exam GENERAL: The patient is well-appearing, well-nourished, in no acute distress CHEST: Clear to auscultation bilaterally. There are no rales, wheezes or rhonchi. HEART: Regular rate and rhythm. No murmurs, clicks, rubs or gallops. No S3 or S4. ABDOMEN:Soft, nontender and nondistended. Good bowel sounds. No rebound or guarding. No gross peritonitis. No gross organomegaly or masses. : Mild irritation noted around the penis. BACK: No CVAT Results 24 hrs Laboratory Tests Test 03/28/19 14:38 Bedside Urine pH (LAB) 7.0 Bedside Urine Protein (LAB) 3+ Bedside Urine Glucose (UA) Negative Bedside Urine Ketones (LAB) Trace Bedside Urine Blood 3+ Bedside Urine Nitrite (LAB) Negative Bedside Urine Leukocyte Esterase (L 1+ Current Medications Medications Dose Sig/Fatmata Start Time Status Last (Trade) Ordered Route PRN Stop Time Admin Dose Reason Admin Lidocaine 20 ml ONCE ONCE 03/28/19 DC 03/28/19 (Lidocaine MM 14:30 03/28/19 14:34 2% Urojet) 14:31 Lidocaine 20 ml ONCE ONCE 03/28/19 DC (Lidocaine MM 14:30 03/28/19 2% Urojet) 14:46 Ceftriaxone 1 gm ONCE ONCE 03/28/19 DC 03/28/19 Sodium IM 15:00 03/28/19 14:52 (Rocephin) 15:01 Lidocaine 5 ml ONCE ONCE 03/28/19 DC 03/28/19 (Xylocaine INJ 15:00 03/28/19 14:52 1% (Mpf)) 15:01 Procedures/MDM ER course: Urine culture sent. Urinalysis positive for infection. Rocephin given in ED. MDM: 63-year-old male presenting with irritation to his catheter. Patient had catheter replaced in the ER. He will be placed on antibiotics and urine culture sent. I have low suspicion for pyelonephritis. Patient is discharged with strict ER precautions and told to follow-up with primary care within 1 to 2 days for close evaluation. Patient is told if symptoms change or worsen to return immediately to the ER. All questions answered at discharge Departure Diagnosis: Primary Impression: UTI (urinary tract infection) Additional Impression: Obstructed Burnham catheter Condition: Stable Patient Instructions: Understanding Urinary Tract Infections (UTIs) Referrals: [facility] (PCP) Additional Instructions: FOLLOW UP WITH YOUR PRIMARY CARE PHYSICIAN TOMORROW.Return to this facility if you are not improving as expected. Comments Patient evaluated with PA, agree with assessment and plan. BRAD White PA-C Mar 28, 2019 14:50 YOLANDA BANDA DO Mar 30, 2019 12:14
[2019-03-28] MEDS ORDERED: LIDOCAINE 1% (MPF) 5 ML VIAL INJ ONE (15:00)
[2019-03-28] MEDS ORDERED: CEFTRIAXONE 1 GM INJ IM ONE (15:00)
[2019-03-28 15:17] VITALS: BP 134/91; PULSE 71; RESP 18
== END 2019-03-28 15:17 | disposition home or self-care (01) ==
LOC: FTE 13:31
DX: T83.098A Other mechanical complication of other urinary catheter, initial encounter (principal); N39.0 Urinary tract infection, site not specified; Y73.2 Prosthetic and other implants, materials and accessory gastroenterology and urology devices associated with adverse incidents
CPT/HCPCS: 51702; 81003; 87086; 96372; 99284; J0696

== ENCOUNTER 2019-06-01 11:30 | Inpatient (IN) | payer BC, OTHER ==
[~2019-06-01] VITALS: Ht 175.3 cm; Wt 73.0 kg
[~2019-06-01 11:30] MED LIST changes: +AMOX500C2 PO; +CEPH-443 PO; +IBUP-1542 PO; +LOSA25TA2 PO; +ONDA4TAB14 PO; +ONDA8TAB14 PO; +TRAM50TA2 PO
[2019-06-01] MEDS ORDERED: LIDOCAINE 2% 20 ML UROJET SYRINGE MM ONE (14:00)
[2019-06-01] MEDS ORDERED: HYDROCODONE/APAP (5/325) TAB PO ONE (19:00)
[2019-06-01] MEDS ORDERED: ACETAMINOPHEN 325 MG TAB PO PRN (20:30)
[2019-06-01] MEDS ORDERED: ONDANSETRON 4 MG INJ IV PRN ×2 (20:30→23:30)
[2019-06-01] MEDS ORDERED: CEFTRIAXONE 1 GM/50 ML (PMX) 50 ML IVPB ONE (20:30)
[2019-06-01] MEDS ORDERED: ZOLPIDEM 5 MG TAB PO ONE (21:00)
[2019-06-01 22:04] VITALS: Ht 175.3 cm; Wt 73.0 kg
[2019-06-01] MEDS ORDERED: HYDROCODONE/APAP (5/325) TAB PO PRN ×2 (23:30)
[2019-06-01] MEDS ORDERED: NACL 0.9% 3 ML SYG IV SCH (23:30)
[2019-06-01] MEDS: SOD CHLORIDE 0.9% 1,000 ML IV SCH (23:51)
[2019-06-02] MEDS: PANTOPRAZOLE SODIUM 20 MG TABEC PO SCH (06:23)
[2019-06-02 08:28] VITALS: BP 124/87; PULSE 68; RESP 18
[2019-06-02] MEDS: TAMSULOSIN (SR) 0.4 MG CAP PO SCH ×2 (09:08→21:40)
[2019-06-02] MEDS: CITALOPRAM 20 MG TAB PO SCH (09:08)
[2019-06-02] MEDS: CEFTRIAXONE 1 GM/50 ML (PMX) 50 ML IVPB SCH (09:09)
[2019-06-02] MEDS: SOD CHLORIDE 0.9% 1,000 ML IV SCH (10:39)
[2019-06-02] MEDS: ACETAMINOPHEN 325 MG TAB PO PRN (13:13)
[2019-06-02 14:59] VITALS: BP 138/74; PULSE 62; RESP 18
[2019-06-02 20:12] VITALS: BP 162/82; PULSE 60; RESP 18
[2019-06-02] MEDS: LOSARTAN 25 MG TAB PO SCH (21:41)
[2019-06-03 01:58] VITALS: BP 168/78; RESP 20
[2019-06-03] MEDS: PANTOPRAZOLE SODIUM 20 MG TABEC PO SCH (06:21)
[2019-06-03 07:37] VITALS: BP 127/86; PULSE 63; RESP 15
[2019-06-03] MEDS: TAMSULOSIN (SR) 0.4 MG CAP PO SCH ×2 (09:16→21:42)
[2019-06-03] MEDS: CITALOPRAM 20 MG TAB PO SCH (09:16)
[2019-06-03] MEDS: LOSARTAN 25 MG TAB PO SCH (09:17)
[2019-06-03] MEDS: ACETAMINOPHEN 325 MG TAB PO PRN (09:18)
[2019-06-03] MEDS: CEFTRIAXONE 1 GM/50 ML (PMX) 50 ML IVPB SCH (10:08)
[2019-06-03 15:38] VITALS: BP 164/84; PULSE 61; RESP 16
[2019-06-03 19:20] VITALS: BP 139/81; PULSE 63; RESP 20
[2019-06-04 02:20] VITALS: BP 135/82; PULSE 55; RESP 18
[2019-06-04] MEDS: PANTOPRAZOLE SODIUM 20 MG TABEC PO SCH (06:41)
[2019-06-04 07:25] VITALS: BP 140/85; PULSE 57; RESP 14
[2019-06-04] MEDS: CITALOPRAM 20 MG TAB PO SCH (10:00)
[2019-06-04] MEDS: CEFTRIAXONE 1 GM/50 ML (PMX) 50 ML IVPB SCH (10:00)
[2019-06-04] MEDS: LOSARTAN 25 MG TAB PO SCH (10:01)
[2019-06-04] MEDS: TAMSULOSIN (SR) 0.4 MG CAP PO SCH ×2 (10:01→20:56)
[2019-06-04] MEDS ORDERED: VANCOMYCIN IV PER PHARMACY XX SCH (11:00)
[2019-06-04] MEDS ORDERED: VANCOMYCIN 1.5 GM/NS 250 ML 250 ML IVPB SCH (12:30)
[2019-06-04 19:56] VITALS: BP 133/86; PULSE 59; RESP 18
[2019-06-04] MEDS: LACTOBACILLUS RHAMNOSUS CAP PO SCH (20:56)
[2019-06-04] MEDS ORDERED: ZOLPIDEM 5 MG TAB PO PRN (22:30)
[2019-06-05] VITALS (28 sets, daily range): BP systolic 123–167; BP diastolic 70–94; PULSE 56–108; RESP 13–23
[2019-06-05] MEDS: VANCOMYCIN 500 MG (PMX) 100 ML IVPB SCH ×2 (01:27→14:12)
[2019-06-05] MEDS: PANTOPRAZOLE SODIUM 20 MG TABEC PO SCH (06:44)
[2019-06-05] MEDS: CEFTRIAXONE 1 GM/50 ML (PMX) 50 ML IVPB SCH (09:17)
[2019-06-05] MEDS: TAMSULOSIN (SR) 0.4 MG CAP PO SCH ×2 (09:17→21:00)
[2019-06-05] MEDS: LOSARTAN 25 MG TAB PO SCH (09:18)
[2019-06-05] MEDS: CITALOPRAM 20 MG TAB PO SCH (09:18)
[2019-06-05] MEDS: LACTOBACILLUS RHAMNOSUS CAP PO SCH ×2 (09:18→21:00)
[2019-06-05] MEDS ORDERED: FENTAnyl 50 MCG/ML VIAL ONE ×2 (18:26→19:18)
[2019-06-05] MEDS ORDERED: HYDROmorphONE 1 MG/5 ML IV SYRINGE IV PRN ×2 (18:30)
[2019-06-05] MEDS ORDERED: FENTAnyl 50 MCG/ML VIAL IV PRN ×2 (18:30)
[2019-06-05] MEDS ORDERED: ONDANSETRON 4 MG INJ IV PRN (18:30)
[2019-06-05] MEDS ORDERED: MEPERIDINE 25 MG INJ IV PRN (18:30)
[2019-06-05] MEDS ORDERED: ALBUTEROL 0.083% (NEB) 2.5 MG/3 ML AMP HHN PRN (18:30)
[2019-06-05] MEDS ORDERED: DIPHENHYDRAMINE 50 MG INJ IV PRN (18:30)
[2019-06-05] MEDS ORDERED: METOCLOPRAMIDE 10 MG INJ IV PRN (18:30)
[2019-06-05] MEDS ORDERED: SUCCINYLCHOLINE CHLORIDE 100 MG/5 ML SYG IV ONE (18:46)
[2019-06-05] MEDS ORDERED: PROPOFOL 20 ML ONE (18:46)
[2019-06-05] MEDS ORDERED: ROCURONIUM 50 MG INJ ONE (18:46)
[2019-06-05] MEDS ORDERED: LIDOCAINE 100 MG SYRINGE ONE (18:46)
[2019-06-05] MEDS ORDERED: LABETALOL HCL 20MG INJ ONE (18:47)
[2019-06-05] MEDS ORDERED: SUGAMMADEX SODIUM 200 MG/2 ML VIAL IV ONE (18:47)
[2019-06-05] MEDS ORDERED: hydrALAzine 20 MG INJ ONE (19:08)
[2019-06-06 00:15] VITALS: BP 142/72; PULSE 76; RESP 18
[2019-06-06] MEDS: VANCOMYCIN 750 MG (PMX) 250 ML IVPB SCH ×2 (04:45→16:04)
[2019-06-06 07:31] VITALS: BP 135/77; PULSE 82; RESP 19
[2019-06-06] MEDS: PANTOPRAZOLE SODIUM 20 MG TABEC PO SCH (07:41)
[2019-06-06] MEDS: ACETAMINOPHEN 325 MG TAB PO PRN (07:42)
[2019-06-06] MEDS: CEFTRIAXONE 1 GM/50 ML (PMX) 50 ML IVPB SCH (08:26)
[2019-06-06] MEDS: LACTOBACILLUS RHAMNOSUS CAP PO SCH ×2 (08:26→21:09)
[2019-06-06] MEDS: TAMSULOSIN (SR) 0.4 MG CAP PO SCH ×2 (08:26→21:09)
[2019-06-06] MEDS: LOSARTAN 25 MG TAB PO SCH (08:27)
[2019-06-06] MEDS: CITALOPRAM 20 MG TAB PO SCH (09:13)
[2019-06-06 20:58] VITALS: BP 161/85; PULSE 72; RESP 18
== END 2019-06-06 22:45 | DRG 666 ==
LOC: E/R 11:30 → MS1 20:14
PROVIDERS: ADMIT Internal Medicine; ATTEND Internal Medicine
PROC: 0T2BX0Z Change Drainage Device in Bladder, External Approach (ICD-10-PCS; 2019-06-01)
PROC: 0VB08ZZ Excision of Prostate, Via Natural or Artificial Opening Endoscopic (ICD-10-PCS; principal; 2019-06-05 17:30)
DX: T83.091A Other mechanical complication of indwelling urethral catheter, initial encounter (principal); N39.0 Urinary tract infection, site not specified; N13.8 Other obstructive and reflux uropathy; N40.1 Benign prostatic hyperplasia with lower urinary tract symptoms; R31.0 Gross hematuria; F32.9 Major depressive disorder, single episode, unspecified; R33.8 Other retention of urine; B95.62 Methicillin resistant Staphylococcus aureus infection as the cause of diseases classified elsewhere; Z59.0 Homelessness; I10 Essential (primary) hypertension; Y84.6 Urinary catheterization as the cause of abnormal reaction of the patient, or of later complication, without mention of misadventure at the time of the procedure
CPT/HCPCS: 71045; 74176; 80048; 80053; 80202; 81001; 83735; 84100; 85025; 85610; 85730; 87086; 88305; 93005; J0360; J0696; J1170; J1200; J2001; J2175; J2405; J3010; J3370; J7030